=== PATIENT | male | born 1930 | race Caucasian/White ===

== ENCOUNTER → 2016-06-19 | Outpatient (CLI) | payer MEDICARE ==
[~2016-06-19] MED LIST: ACET-2321 PO; AMLO10TA2 PO; ASPI-1115 PO; ATOR10TA64 PO; DOCU-168 PO; FINA5TAB42 PO; GLUC1CAP10 PO; MAGN400T6 PO; NIAC250C2 PO; OMEG-34 PO; POLY17PO6 PO; SAW450CA4 PO; TRAM50TA4 PO; TRAM50TA53 PO
--- NOTE | 2016-06-19 15:20 | DI ---
Indication:ITS.REASON: R13.19 DYSPHAGIA Procedure:UPPER GI W/KUB, SBS, CONTR. 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 A right hip arthroplasty is visualized. The remainder of the internal corrosion specialist imaging is negative. UPPER GI WITH SMALL BOWEL FOLLOW-THROUGH: Technique:After ingesting air crystals, the patient swallowed thick and thin barium without difficulty. Fluoroscopic imaging was obtained in the upright LPO, supine AP, LPO, RPO, and right lateral positions. Conventional x-ray imaging of the abdomen was obtained in timed intervals until contrast was visualized in the colon. Additional fluoroscopic imaging of the abdomen was obtained. Findings: Esophagus: There is a small sliding esophageal hiatal hernia. The remainder of the esophagus is negative. Esophageal motility appears normal. The cricopharyngeus muscle relaxes completely. There is no Zenker's diverticulum. No gastroesophageal reflux is visualized. Stomach: The stomach is negative. It is normal in contour and appearance. The mucosal fold patterns appear normal. There is no obvious ulcer. There is no filling defect to suggest a mass. Small bowel: The small bowel is negative. The mucosal fold patterns appear normal. There is no obvious ulcer. There is no filling defect to suggest a mass. The duodenal sweep crosses midline in a normal fashion. There is no malrotation or obstruction of the small bowel. Transit time of contrast from stomach to terminal ileum was approximately one hour 40 minutes. The terminal ileum is visualized and is negative. Contrast is visualized in the cecum. Impression:Small sliding esophageal hiatal hernia. Fluoroscopy dose: 114.72 mGy (Cumulative air kerma) Taj Sarmiento RPA/RRA performed this under my direct supervision. .
== END ==
LOC: IMA 09:00
DX: K44.9 Diaphragmatic hernia without obstruction or gangrene (principal); R13.19 Other dysphagia